=== PATIENT | male | born 1940 | race Caucasian/White ===

== ENCOUNTER 2021-04-23 19:36 | Inpatient (IN) ==
[2021-04-23] MEDS ORDERED: Melatonin 3 MG TABLET PO PRN (22:56)
[2021-04-23] MEDS ORDERED: Naloxone 0.4 MG/ML INJ IVP PRN (22:56)
[2021-04-23] MEDS ORDERED: Ondansetron 4 MG/2 ML VIAL IVP PRN (22:56)
[2021-04-23] MEDS ORDERED: 0.9 % Sodium Chloride 1,000 ML IVC SCH (23:00)
[2021-04-24 00:20] LABS: Hematocrit 38.1 % (37.5-50.1); Hemoglobin 12.4 g/dL (12.9-16.9); Mean Corpuscular HGB Conc 32.5 g/dL (31.6-35.5); Mean Corpuscular Hemoglobin 27.9 pg (28.0-33.3); Mean Corpuscular Volume 85.8 fL (83.0-100.0); Mean Platelet Volume 10.1 fL (9.4-12.4); Platelet Count 287 K/mcL (140-400); Red Blood Count 4.44 M/mcL (4.19-5.50); Red Cell Distribution Width 14.2 % (11.5-14.5); White Blood Count 24.1 K/mcL (4.3-11.1)
[2021-04-24 00:27] LABS: INR 1.6; Prothrombin Time 17.8 Seconds (9.4-12.1)
[2021-04-24 00:29] LABS: Activated Partial Thrombo Time 24.8 Seconds (26.0-36.0)
[2021-04-24 00:36] LABS: Albumin 2.9 g/dL (3.5-5.7); Albumin/Globulin Ratio 0.9 (1.1-2.2); Bilirubin,Total 0.7 mg/dL (0.3-1.0); Calcium 8.4 mg/dL (8.6-10.3); Globulin 3.1 g/dL (2.4-3.5); Magnesium 1.7 mg/dL (1.6-2.6); Phosphorous 2.9 mg/dL (2.7-4.5); Potassium 5.1 mEq/L (3.5-5.1)
[2021-04-24 00:45] LABS: Lymphocytes # 1.5 K/mcL (0.6-4.6); Monocytes # 0.5 K/mcL (0.0-1.3); Neutrophils # 22.2 K/mcL (1.6-8.9); Platelet Estimate Normal (Normal); Reactive Lymphocytes Present (Not Present)
[2021-04-24 01:10] LABS: Thyroid Stimulating Hormone 2.407 mcIU/mL (0.340-5.600); Troponin I 0.07 ng/mL (< 0.04)
[2021-04-24 02:39] LABS: Hematocrit 37.6 % (37.5-50.1); Hemoglobin 12.5 g/dL (12.9-16.9); Mean Corpuscular HGB Conc 33.2 g/dL (31.6-35.5); Mean Corpuscular Hemoglobin 27.9 pg (28.0-33.3); Mean Corpuscular Volume 83.9 fL (83.0-100.0); Mean Platelet Volume 10.2 fL (9.4-12.4); Platelet Count 275 K/mcL (140-400); Red Blood Count 4.48 M/mcL (4.19-5.50); Red Cell Distribution Width 14.1 % (11.5-14.5); White Blood Count 22.9 K/mcL (4.3-11.1)
[2021-04-24 02:54] LABS: Bilirubin,Urine Small (Negative); Blood,Urine Large (Negative); Clarity,Urine Turbid (Clear); Color,Urine Brown (Yellow); Glucose,Urine (UA) Normal (Normal); Ketones,Urine Trace mg/dL (Negative); Leukocyte Esterase,Urine Large (Negative); Nitrite,Urine Negative (Negative); PH,Urine 7.5 pH Units (5.0-8.0); Protein,Urine >=300 mg/dL (Neg-Trace); Specific Gravity,Urine >= 1.030 (1.010-1.025); Urobilinogen,Urine Normal (Normal)
[2021-04-24 02:57] LABS: Calcium 8.3 mg/dL (8.6-10.3); Potassium 5.2 mEq/L (3.5-5.1)
[2021-04-24 02:59] LABS: Bacteria,Urine Many per hpf (None-Few); WBC,Urine TNTC per hpf (0-3)
[2021-04-24] MEDS: cefTRIAXone 2,000 MG in 0.9 % Sodium Chloride Mini Bag 100 ML IVPB SCH (05:26)
[2021-04-24 09:16] LABS: Calcium 8.1 mg/dL (8.6-10.3); Potassium 5.1 mEq/L (3.5-5.1)
[2021-04-24 09:30] LABS: Troponin I 0.04 ng/mL (< 0.04)
[2021-04-24] MEDS: carvediloL 25 MG TABLET PO SCH (15:48)
[2021-04-24] MEDS: Furosemide 20 MG TABLET PO SCH ×2 (15:48→22:04)
[2021-04-24] MEDS: *HR* Heparin 5,000 UNIT/ML VIAL SQ SCH (17:02)
[2021-04-24] MEDS: Budesonide/Formoterol 160/4.5 1 PUFF INH IH SCH (20:23)
[2021-04-24] MEDS: Sacubitril/Valsartan 49/51 MG 1 TABLET PO SCH (22:03)
[2021-04-24] MEDS ORDERED: Acetaminophen 325 MG TABLET PO PRN (23:46)
[2021-04-25] MEDS: cefTRIAXone 2,000 MG in 0.9 % Sodium Chloride Mini Bag 100 ML IVPB SCH (04:32)
[2021-04-25] MEDS: *HR* Heparin 5,000 UNIT/ML VIAL SQ SCH ×3 (04:35→21:45)
[2021-04-25 05:35] LABS: Basophils % 0.2 %; Eosinophils % 0.2 %; Hematocrit 37.1 % (37.5-50.1); Hemoglobin 11.6 g/dL (12.9-16.9); Immature Granulocytes % 0.9 % (0-4); Lymphocytes # 0.8 K/mcL (0.6-4.6); Mean Corpuscular HGB Conc 31.3 g/dL (31.6-35.5); Mean Corpuscular Volume 86.3 fL (83.0-100.0); Mean Platelet Volume 10.5 fL (9.4-12.4); Monocytes # 0.9 K/mcL (0.0-1.3); Monocytes % 5.4 %; Neutrophils # 14.4 K/mcL (1.6-8.9); Platelet Count 220 K/mcL (140-400); Red Cell Distribution Width 14.6 % (11.5-14.5); Segmented Neutrophils % 88.3 %; White Blood Count 16.2 K/mcL (4.3-11.1)
[2021-04-25 05:48] LABS: Calcium 8.1 mg/dL (8.6-10.3); Potassium 4.8 mEq/L (3.5-5.1)
[2021-04-25] MEDS: Budesonide/Formoterol 160/4.5 1 PUFF INH IH SCH ×2 (07:41→21:37)
[2021-04-25] MEDS: Sacubitril/Valsartan 49/51 MG 1 TABLET PO SCH (08:59)
[2021-04-25] MEDS: carvediloL 25 MG TABLET PO SCH ×2 (08:59→16:41)
[2021-04-25] MEDS: Furosemide 20 MG TABLET PO SCH (08:59)
[2021-04-25] MEDS ORDERED: Aspirin 325 MG TABLET PO SCH (09:00)
[2021-04-25] MEDS ORDERED: *HR* Succinylcholine 200 MG/10 ML VIAL IVP ONE (11:23)
[2021-04-25] MEDS ORDERED: Lidocaine -MPF 2% 2 ML VIAL ONE (11:24)
[2021-04-25] MEDS ORDERED: *HR* Propofol 200 MG/20 ML VIAL IVP ONE (11:24)
[2021-04-25] MEDS ORDERED: *HR* FentaNYL (PF) 100 MCG/2 ML VIAL ONE (11:24)
[2021-04-25] MEDS ORDERED: Isovue-300 50ML VIAL ONE (11:30)
[2021-04-25] MEDS ORDERED: *HR* Etomidate 40 MG/20 ML VIAL IVP ONE (11:35)
[2021-04-25] MEDS ORDERED: EPHEDrine 50 MG/ML VIAL ONE (11:37)
[2021-04-25] MEDS ORDERED: Ondansetron 4 MG/2 ML VIAL ONE (11:54)
[2021-04-25] MEDS ORDERED: Albuterol 2.5 MG/3 ML NEBULIZER IH PRN ×2 (12:02→13:23)
[2021-04-25] MEDS ORDERED: *HR* FentaNYL (PF) 100 MCG/2 ML VIAL IVP PRN ×2 (12:02→13:23)
[2021-04-25] MEDS ORDERED: Ondansetron 4 MG/2 ML VIAL IVP PRN (13:23)
[2021-04-25] MEDS ORDERED: Melatonin 3 MG TABLET PO PRN (13:23)
[2021-04-25] MEDS ORDERED: Naloxone 0.4 MG/ML INJ IVP PRN (13:23)
[2021-04-25] MEDS ORDERED: *HR* Heparin 5,000 UNIT/ML VIAL SQ SCH (14:00)
[2021-04-26] MEDS: *HR* Heparin 5,000 UNIT/ML VIAL SQ SCH ×3 (04:22→20:36)
[2021-04-26] MEDS: Budesonide/Formoterol 160/4.5 1 PUFF INH IH SCH ×2 (07:28→20:26)
[2021-04-26] MEDS ORDERED: Aspirin Enteric Coated 81 MG Tablet PO SCH (09:00)
[2021-04-26] MEDS ORDERED: cefTRIAXone 1,000 MG in 0.9 % Sodium Chloride Mini Bag 100 ML IVPB SCH (09:00)
[2021-04-26] MEDS: Aspirin Enteric Coated 81 MG Tablet PO SCH (09:03)
[2021-04-26] MEDS: carvediloL 25 MG TABLET PO SCH ×2 (09:03→16:42)
[2021-04-26] MEDS: cefTRIAXone 1,000 MG in 0.9 % Sodium Chloride Mini Bag 100 ML IVPB SCH (09:04)
[2021-04-26 09:07] LABS: Basophils % 0.1 %; Immature Granulocytes % 0.5 % (0-4); Lymphocytes # 0.4 K/mcL (0.6-4.6); Lymphocytes % 2.7 %; Mean Corpuscular HGB Conc 32.4 g/dL (31.6-35.5); Mean Corpuscular Hemoglobin 27.2 pg (28.0-33.3); Mean Corpuscular Volume 83.9 fL (83.0-100.0); Mean Platelet Volume 10.6 fL (9.4-12.4); Monocytes # 0.4 K/mcL (0.0-1.3); Monocytes % 2.7 %; Neutrophils # 15.5 K/mcL (1.6-8.9); Platelet Count 243 K/mcL (140-400); Red Blood Count 4.41 M/mcL (4.19-5.50); Red Cell Distribution Width 14.6 % (11.5-14.5); White Blood Count 16.5 K/mcL (4.3-11.1)
[2021-04-26 09:45] LABS: Calcium 8.3 mg/dL (8.6-10.3)
[2021-04-27 03:26] LABS: Basophils % 0.1 %; Hematocrit 35.7 % (37.5-50.1); Hemoglobin 11.7 g/dL (12.9-16.9); Immature Granulocytes % 0.6 % (0-4); Immature Platelets 4.2 % (1.1-6.1); Lymphocytes # 0.6 K/mcL (0.6-4.6); Lymphocytes % 3.6 %; Mean Corpuscular HGB Conc 32.8 g/dL (31.6-35.5); Mean Corpuscular Hemoglobin 27.5 pg (28.0-33.3); Mean Platelet Volume 11.3 fL (9.4-12.4); Monocytes # 0.7 K/mcL (0.0-1.3); Monocytes % 4.3 %; Neutrophils # 15.2 K/mcL (1.6-8.9); Platelet Count 237 K/mcL (140-400); Red Blood Count 4.25 M/mcL (4.19-5.50); Red Cell Distribution Width 14.7 % (11.5-14.5); Segmented Neutrophils % 91.4 %; White Blood Count 16.6 K/mcL (4.3-11.1)
[2021-04-27 03:43] LABS: Calcium 8.1 mg/dL (8.6-10.3); Potassium 5.5 mEq/L (3.5-5.1)
[2021-04-27 04:01] LABS: Platelet Estimate Normal (Normal)
[2021-04-27] MEDS: *HR* Heparin 5,000 UNIT/ML VIAL SQ SCH ×3 (05:59→21:31)
[2021-04-27] MEDS: Budesonide/Formoterol 160/4.5 1 PUFF INH IH SCH ×2 (07:55→21:06)
[2021-04-27] MEDS: carvediloL 25 MG TABLET PO SCH ×3 (08:18→16:02)
[2021-04-27] MEDS: Aspirin Enteric Coated 81 MG Tablet PO SCH (08:28)
[2021-04-27] MEDS: cefTRIAXone 1,000 MG in 0.9 % Sodium Chloride Mini Bag 100 ML IVPB SCH (08:29)
[2021-04-27] MEDS ORDERED: cefTRIAXone 1,000 MG in 0.9 % Sodium Chloride Mini Bag 100 ML IVPB ONE (15:36)
[2021-04-27] MEDS: 0.9 % Sodium Chloride 1,000 ML IVC SCH (16:03)
[2021-04-27 19:09] LABS: Calcium 8.3 mg/dL (8.6-10.3)
[2021-04-28 01:30] LABS: Basophils % 0.1 %; Eosinophils % 0.1 %; Hemoglobin 12.5 g/dL (12.9-16.9); Immature Granulocytes % 0.9 % (0-4); Lymphocytes # 0.9 K/mcL (0.6-4.6); Lymphocytes % 6.4 %; Mean Corpuscular HGB Conc 32.9 g/dL (31.6-35.5); Mean Corpuscular Hemoglobin 27.2 pg (28.0-33.3); Mean Corpuscular Volume 82.8 fL (83.0-100.0); Mean Platelet Volume 10.8 fL (9.4-12.4); Monocytes % 7.4 %; Neutrophils # 11.7 K/mcL (1.6-8.9); Platelet Count 242 K/mcL (140-400); Red Blood Count 4.59 M/mcL (4.19-5.50); Red Cell Distribution Width 14.9 % (11.5-14.5); Segmented Neutrophils % 85.1 %; White Blood Count 13.7 K/mcL (4.3-11.1)
[2021-04-28 01:43] LABS: Calcium 8.3 mg/dL (8.6-10.3); Potassium 5.1 mEq/L (3.5-5.1)
[2021-04-28] MEDS: 0.9 % Sodium Chloride 1,000 ML IVC SCH ×3 (05:49→17:48)
[2021-04-28] MEDS: *HR* Heparin 5,000 UNIT/ML VIAL SQ SCH ×3 (06:07→21:02)
[2021-04-28] MEDS: Budesonide/Formoterol 160/4.5 1 PUFF INH IH SCH ×2 (07:20→20:06)
[2021-04-28] MEDS ORDERED: cefTRIAXone 2,000 MG in 0.9 % Sodium Chloride Mini Bag 100 ML IVPB SCH (09:00)
[2021-04-28] MEDS ORDERED: CefTRIAXone 1,000 MG VIAL ONE (09:52)
[2021-04-28] MEDS: cefTRIAXone 2,000 MG in Water for inj. (sterile) 20 ML IVP SCH (10:02)
[2021-04-28] MEDS: carvediloL 25 MG TABLET PO SCH ×2 (10:03→17:48)
[2021-04-28] MEDS: Aspirin Enteric Coated 81 MG Tablet PO SCH (10:03)
[2021-04-29 02:09] LABS: Basophils % 0.1 %; Eosinophils % 0.4 %; Hemoglobin 12.1 g/dL (12.9-16.9); Immature Granulocytes % 1.5 % (0-4); Lymphocytes # 0.8 K/mcL (0.6-4.6); Lymphocytes % 7.2 %; Mean Corpuscular HGB Conc 33.6 g/dL (31.6-35.5); Mean Corpuscular Hemoglobin 27.9 pg (28.0-33.3); Mean Corpuscular Volume 83.1 fL (83.0-100.0); Mean Platelet Volume 10.5 fL (9.4-12.4); Monocytes # 0.6 K/mcL (0.0-1.3); Monocytes % 5.3 %; Neutrophils # 9.5 K/mcL (1.6-8.9); Platelet Count 226 K/mcL (140-400); Red Blood Count 4.33 M/mcL (4.19-5.50); Segmented Neutrophils % 85.5 %
[2021-04-29 02:27] LABS: Potassium 4.6 mEq/L (3.5-5.1)
[2021-04-29] MEDS: 0.9 % Sodium Chloride 1,000 ML IVC SCH ×4 (02:41→21:46)
[2021-04-29] MEDS: *HR* Heparin 5,000 UNIT/ML VIAL SQ SCH ×3 (05:41→21:24)
[2021-04-29] MEDS: carvediloL 25 MG TABLET PO SCH ×2 (07:54→17:26)
[2021-04-29] MEDS: Aspirin Enteric Coated 81 MG Tablet PO SCH (07:54)
[2021-04-29] MEDS: cefTRIAXone 2,000 MG in Water for inj. (sterile) 20 ML IVP SCH (10:03)
[2021-04-29] MEDS: Budesonide/Formoterol 160/4.5 1 PUFF INH IH SCH ×2 (10:18→19:55)
[2021-04-30 01:18] LABS: Basophils % 0.1 %; Eosinophils # 0.1 K/mcL (0.0-0.6); Eosinophils % 0.8 %; Hematocrit 37.6 % (37.5-50.1); Hemoglobin 12.3 g/dL (12.9-16.9); Immature Granulocytes % 1.1 % (0-4); Lymphocytes # 0.9 K/mcL (0.6-4.6); Lymphocytes % 7.3 %; Mean Corpuscular HGB Conc 32.7 g/dL (31.6-35.5); Mean Corpuscular Hemoglobin 27.5 pg (28.0-33.3); Mean Corpuscular Volume 83.9 fL (83.0-100.0); Mean Platelet Volume 10.1 fL (9.4-12.4); Monocytes # 0.7 K/mcL (0.0-1.3); Monocytes % 5.6 %; Neutrophils # 10.3 K/mcL (1.6-8.9); Platelet Count 242 K/mcL (140-400); Red Blood Count 4.48 M/mcL (4.19-5.50); Red Cell Distribution Width 15.4 % (11.5-14.5); Segmented Neutrophils % 85.1 %; White Blood Count 12.2 K/mcL (4.3-11.1)
[2021-04-30 01:38] LABS: Calcium 8.1 mg/dL (8.6-10.3)
[2021-04-30] MEDS: *HR* Heparin 5,000 UNIT/ML VIAL SQ SCH (05:44)
[2021-04-30] MEDS: carvediloL 25 MG TABLET PO SCH (07:26)
[2021-04-30] MEDS: Aspirin Enteric Coated 81 MG Tablet PO SCH (07:26)
[2021-04-30 07:46] VITALS: BP 122/65
[2021-04-30] MEDS: Budesonide/Formoterol 160/4.5 1 PUFF INH IH SCH (07:54)
[2021-04-30] MEDS: 0.9 % Sodium Chloride 1,000 ML IVC SCH (10:02)
[2021-04-30] MEDS: cefTRIAXone 2,000 MG in Water for inj. (sterile) 20 ML IVP SCH (10:03)
== END 2021-04-30 13:15 | DRG 853 ==
LOC: 2ANU → SUATTDRO 21:15 → 2NNU 04-25 13:18 → 3ANU 04-27 17:43
PROVIDERS: ADMIT Internal Medicine; ATTEND Family Medicine

== ENCOUNTER 2021-09-30 23:44 | Observation (INO) ==
[2021-10-01] MEDS ORDERED: Melatonin 3 MG TABLET PO PRN (02:34)
[2021-10-01] MEDS ORDERED: Ondansetron 4 MG/2 ML VIAL IVP PRN (02:34)
[2021-10-01] MEDS ORDERED: Acetaminophen 325 MG TABLET PO PRN ×2 (02:34→10:16)
[2021-10-01] MEDS ORDERED: Naloxone 0.4 MG/ML INJ IVP PRN (02:34)
[2021-10-01 03:14] LABS: Basophils % 0.2 %; Eosinophils % 0.3 %; Hematocrit 33.2 % (37.5-50.1); Hemoglobin 10.4 g/dL (12.9-16.9); Immature Granulocytes % 0.3 % (0-4); Lymphocytes # 1.2 K/mcL (0.6-4.6); Lymphocytes % 13.6 %; Mean Corpuscular HGB Conc 31.3 g/dL (31.6-35.5); Mean Corpuscular Hemoglobin 27.7 pg (28.0-33.3); Mean Corpuscular Volume 88.5 fL (83.0-100.0); Monocytes # 0.7 K/mcL (0.0-1.3); Monocytes % 7.9 %; Platelet Count 143 K/mcL (140-400); Red Blood Count 3.75 M/mcL (4.19-5.50); Red Cell Distribution Width 14.6 % (11.5-14.5); Segmented Neutrophils % 77.7 %
[2021-10-01 03:31] LABS: Albumin 3.2 g/dL (3.5-5.7); Bilirubin,Total 0.6 mg/dL (0.3-1.0); Calcium 8.6 mg/dL (8.6-10.3); Globulin 3.2 g/dL (2.4-3.5); Magnesium 2.1 mg/dL (1.6-2.6); Phosphorous 3.3 mg/dL (2.7-4.5); Potassium 3.7 mEq/L (3.5-5.1); Total Protein 6.4 g/dL (6.4-8.9)
[2021-10-01] MEDS ORDERED: cefTRIAXone 1,000 MG in Water for inj. (sterile) 10 ML IVP SCH (09:00)
[2021-10-01] MEDS ORDERED: 0.9 % Sodium Chloride w KCl 20 MEQ/1,000 ML MLS IVC SCH (11:15)
[2021-10-01] MEDS ORDERED: Furosemide 20 MG TABLET PO SCH (15:00)
[2021-10-01] MEDS ORDERED: Ipratropium/Albuterol Neb 3 ML IH PRN (17:34)
[2021-10-01] MEDS: carvediloL 25 MG TABLET PO SCH (17:48)
[2021-10-01] MEDS: Sacubitril/Valsartan 49/51 MG 1 TABLET PO SCH (20:02)
[2021-10-01] MEDS ORDERED: POTASSIUM CHLORIDE 20 MEQ PO SCH (21:00)
[2021-10-02 02:13] LABS: Hematocrit 29.4 % (37.5-50.1); Hemoglobin 9.3 g/dL (12.9-16.9); Mean Corpuscular HGB Conc 31.6 g/dL (31.6-35.5); Mean Corpuscular Hemoglobin 27.6 pg (28.0-33.3); Mean Corpuscular Volume 87.2 fL (83.0-100.0); Mean Platelet Volume 10.3 fL (9.4-12.4); Platelet Count 168 K/mcL (140-400); Red Blood Count 3.37 M/mcL (4.19-5.50); Red Cell Distribution Width 14.8 % (11.5-14.5); White Blood Count 7.4 K/mcL (4.3-11.1)
[2021-10-02 02:31] LABS: Calcium 8.1 mg/dL (8.6-10.3); Potassium 3.5 mEq/L (3.5-5.1)
[2021-10-02 03:03] VITALS: O2SAT 95
[2021-10-02] MEDS: Cefuroxime PO 500 MG TABLET PO SCH ×2 (05:14→16:44)
[2021-10-02] MEDS: Furosemide 20 MG TABLET PO SCH ×2 (07:41→16:44)
[2021-10-02] MEDS: Sacubitril/Valsartan 49/51 MG 1 TABLET PO SCH (07:41)
[2021-10-02] MEDS: carvediloL 25 MG TABLET PO SCH ×2 (07:42→16:44)
[2021-10-02] MEDS ORDERED: Aspirin 325 MG TABLET PO SCH (09:00)
[2021-10-02] MEDS ORDERED: Ipratropium/Albuterol Neb 3 ML IH SCH (16:00)
[2021-10-02 16:03] VITALS: BP 118/62; PULSE 65; TEMP 98.5
== END 2021-10-02 17:24 | disposition home health service (06) ==
LOC: 3ANU
PROVIDERS: ADMIT Family Medicine; ATTEND Family Medicine